=== PATIENT | female | born 1950 | race Caucasian/White ===

== ENCOUNTER 2022-01-11 20:09 | Emergency (ER) | payer OTHER ==
[~2022-01-11] VITALS: Ht 175.3 cm; Wt 98.9 kg
[2022-01-11 20:10] VITALS: BP 0/0
[2022-01-11 21:07] LABS: COVID AG,FIA SOURCE NASAL SWAB
== END 2022-01-12 04:38 ==
LOC: EMS 20:10 → EDSEX 20:10 → EMS 01-12 04:38
DX: I46.9 Cardiac arrest, cause unspecified (principal); F41.9 Anxiety disorder, unspecified; J45.909 Unspecified asthma, uncomplicated; I11.0 Hypertensive heart disease with heart failure; F32.A Depression, unspecified; E78.00 Pure hypercholesterolemia, unspecified; I50.9 Heart failure, unspecified; G93.40 Encephalopathy, unspecified; Z98.890 Other specified postprocedural states; Z20.822 Contact with and (suspected) exposure to COVID-19; Z88.5 Allergy status to narcotic agent; Z88.8 Allergy status to other drugs, medicaments and biological substances
CPT/HCPCS: 92950; 93005; 99285; Z7502